=== PATIENT | female | born 2000 | race Caucasian/White ===

== ENCOUNTER 2020-05-25 00:15 | Inpatient (IN) | payer BC ==
[2020-05-25] MEDS: DEXTROSE 5%-LACTATED RINGERS 1,000 ML IV SCH (02:26)
[2020-05-25] MEDS ORDERED: BUTORPHANOL TARTRATE 1 MG/ML VIAL IVPB ONE (08:34)
[2020-05-25] MEDS ORDERED: PROMETHAZINE HCL 25 MG/1 ML VIAL IVPB ONE (08:34)
[2020-05-25 09:20] LABS: BASO % 0.3 % (0-2.0); HEMATOCRIT 26.7 % (32.4-45.2); HEMOGLOBIN 8.5 GM/dL (10.7-15.3); LYMPH % 17.6 % (8-40); MCH 23.8 pg (25.7-33.7); MCHC 31.7 g/dl (32.0-36.0); MEAN CELL VOLUME 75.2 fl (80-96); MEAN PLT VOLUME 9.4 fl (7.5-11.1); MONO % 11.9 % (3.8-10.2); NEUT % 66.2 % (42.8-82.8); PLATELET COUNT 208 K/MM3 (134-434); RBC 3.55 M/mm3 (3.60-5.2); RDW 16.9 % (11.6-15.6)
[2020-05-25 09:29] LABS: PROTHROMBIN TIME (PATIENT) 12.3 SEC (9.7-13.0)
[2020-05-25] MEDS ORDERED: AMPICILLIN - 2 GM in SODIUM CHLORIDE 100 ML IVPB ONE (09:30)
[2020-05-25 09:31] LABS: ACTIVATED PTT 25.9 SECONDS (25.2-36.5)
[2020-05-25] MEDS ORDERED: AMPICILLIN SODIUM 2 GM VIAL ONE (09:32)
[2020-05-25 09:55] LABS: POTASSIUM 3.6 mmol/L (3.5-5.1)
[2020-05-25 09:57] LABS: ALBUMIN 2.4 g/dl (3.4-5.0); CALCIUM 8.5 mg/dL (8.5-10.1)
[2020-05-25 10:00] LABS: CREATININE 0.5 mg/dL (0.55-1.3)
[2020-05-25 10:02] LABS: BILIRUBIN,TOTAL 0.4 mg/dL (0.2-1); TOT PROT 5.8 g/dl (6.4-8.2)
[2020-05-25 10:15] LABS: BLOOD UREA NITROGEN 2.9 mg/dL (7-18)
[2020-05-25 10:23] LABS: SYPHILIS W/ RPR CONF NON-REACTIVE (NONREACTIVE)
[2020-05-25 10:51] LABS: HIV INTERPRETATION NEGATIVE (NEGATIVE)
[2020-05-25 10:56] VITALS: BMI 31.4
[2020-05-25] MEDS ORDERED: OXYTOCIN 30 UNITS in 0.9% NS 30 UNIT/500 ML INFUS.BAG IVPB ONE (12:00)
[2020-05-25] MEDS ORDERED: AMPICILLIN SODIUM 1 GM VIAL ONE ×2 (12:00→16:22)
[2020-05-25] MEDS: OXYTOCIN 30 UNITS in 0.9% NS 30 UNIT/500 ML INFUS.BAG IVPB SCH (12:00)
[2020-05-25] MEDS: AMPICILLIN - 1 GM in SODIUM CHLORIDE 100 ML IVPB SCH ×2 (13:30→17:00)
[2020-05-25] MEDS ORDERED: PROMETHAZINE HCL 25 MG/1 ML VIAL ONE (18:17)
[2020-05-25] MEDS ORDERED: BUTORPHANOL TARTRATE 2 MG/ML VIAL ONE (18:17)
[2020-05-25] MEDS ORDERED: OXYTOCIN 20 UNITS in 0.9% NS 20 UNIT/1,000 ML INFUS.BAG IV ONE ×2 (21:16→23:13)
[2020-05-25] MEDS ORDERED: morphine SULFATE/PF 0.5 MG/ML (2cc Syringe - QUVA) ONE (21:25)
[2020-05-25] MEDS ORDERED: ceFAZolin SODIUM 1 GM VIAL ONE (21:26)
[2020-05-25] MEDS ORDERED: KETOROLAC TROMETHAMINE 30 MG/1 ML VIAL ONE (21:26)
[2020-05-25] MEDS ORDERED: morphine SULFATE/PF 0.5 MG/ML (2cc Syringe - QUVA) EP ONE (21:30)
[2020-05-25] MEDS ORDERED: oxyCODONE HCL 5 MG TABLET PO PRN (22:28)
[2020-05-25] MEDS ORDERED: SENNOSIDES/DOCUSATE COMBO (SENNA PLUS) TABLET (UD) PO PRN (22:28)
[2020-05-25] MEDS ORDERED: METHYLERGONOVINE MALEATE 0.2 MG/1 ML AMP IM PRN (22:28)
[2020-05-25] MEDS ORDERED: ONDANSETRON 4 MG/2 ML VIAL IVPUSH PRN (22:33)
[2020-05-25] MEDS ORDERED: ACETAMINOPHEN 1000 MG/100 ML VIAL (NON FORMULARY) IVPB ONE (22:34)
[2020-05-26] MEDS ORDERED: ACETAMINOPHEN INJECTION 100 ML IVPB ONE (00:40)
[2020-05-26] MEDS ORDERED: OXYTOCIN 20 UNITS in 0.9% NS 20 UNIT/1,000 ML INFUS.BAG IV ONE (08:25)
[2020-05-26] MEDS: OXYTOCIN 20 UNITS in 0.9% NS 20 UNIT/1,000 ML INFUS.BAG IV SCH ×4 (09:00→23:21)
[2020-05-26 09:36] LABS: BASO % 0.5 % (0-2.0); EOS % 1.6 % (0-4.5); HEMATOCRIT 28.4 % (32.4-45.2); HEMOGLOBIN 9.1 GM/dL (10.7-15.3); LYMPH % 12.3 % (8-40); MCH 24.4 pg (25.7-33.7); MEAN CELL VOLUME 76.3 fl (80-96); MEAN PLT VOLUME 9.6 fl (7.5-11.1); MONO % 11.7 % (3.8-10.2); NEUT % 73.9 % (42.8-82.8); PLATELET COUNT 204 K/MM3 (134-434); RBC 3.72 M/mm3 (3.60-5.2); RDW 17.2 % (11.6-15.6); WHITE BLOOD COUNT 10.8 K/mm3 (4.0-10.0)
[2020-05-26] MEDS: IBUPROFEN 800 MG/8 ML IJ IVPB PRN ×2 (13:49→20:47)
[2020-05-26] MEDS: PRENATAL VITAMINS W/ FOLIC ACID TABLET (FP) PO SCH (17:35)
[2020-05-26] MEDS: AMPICILLIN - 1 GM in SODIUM CHLORIDE 100 ML IVPB SCH ×2 (17:36→19:41)
[2020-05-26] MEDS: OXYTOCIN 30 UNITS in 0.9% NS 30 UNIT/500 ML INFUS.BAG IVPB SCH (17:36)
[2020-05-26] MEDS: DEXTROSE 5%-LACTATED RINGERS 1,000 ML IV SCH (19:42)
[2020-05-26] MEDS: SIMETHICONE 80 MG TAB.CHEW (FP) PO PRN (20:48)
[2020-05-26] MEDS ORDERED: BISACODYL 10 MG SUPP.RECT RC PRN (22:28)
[2020-05-27 09:25] LABS: BASO % 0.6 % (0-2.0); EOS % 4.3 % (0-4.5); HEMATOCRIT 30.1 % (32.4-45.2); HEMOGLOBIN 9.4 GM/dL (10.7-15.3); LYMPH % 12.8 % (8-40); MCH 23.8 pg (25.7-33.7); MCHC 31.4 g/dl (32.0-36.0); MEAN CELL VOLUME 75.8 fl (80-96); MEAN PLT VOLUME 8.9 fl (7.5-11.1); MONO % 9.4 % (3.8-10.2); NEUT % 72.9 % (42.8-82.8); PLATELET COUNT 256 K/MM3 (134-434); RBC 3.97 M/mm3 (3.60-5.2); RDW 17.8 % (11.6-15.6); WHITE BLOOD COUNT 10.6 K/mm3 (4.0-10.0)
[2020-05-27] MEDS: PRENATAL VITAMINS W/ FOLIC ACID TABLET (FP) PO SCH (10:02)
[2020-05-27] MEDS: ACETAMINOPHEN 325 MG TABLET (FP) PO PRN ×3 (10:05→22:28)
[2020-05-27] MEDS: SIMETHICONE 80 MG TAB.CHEW (FP) PO PRN ×3 (10:06→22:29)
[2020-05-27] MEDS: IBUPROFEN 600 MG TABLET (FP) PO PRN ×3 (10:06→22:28)
[2020-05-28] MEDS: ACETAMINOPHEN 325 MG TABLET (FP) PO PRN ×2 (04:07→08:37)
[2020-05-28] MEDS: IBUPROFEN 600 MG TABLET (FP) PO PRN ×2 (04:07→08:36)
[2020-05-28] MEDS: oxyCODONE HCL 5 MG TABLET PO PRN ×2 (04:08→08:38)
[2020-05-28] MEDS: SIMETHICONE 80 MG TAB.CHEW (FP) PO PRN ×2 (04:08→08:36)
[2020-05-28] MEDS: PRENATAL VITAMINS W/ FOLIC ACID TABLET (FP) PO SCH (09:25)
[2020-05-28 09:51] VITALS: BP 116/74; PULSE 65; TEMP 97.5
== END 2020-05-28 12:30 | disposition home or self-care (01) | DRG 833 ==
LOC: JDEL 00:15 → JLDR 06:45 → J3W 05-26 13:49
PROVIDERS: ADMIT Obstetrics & Gynecology; ATTEND Obstetrics & Gynecology
PROC: 30233N1 Transfusion of Nonautologous Red Blood Cells into Peripheral Vein, Percutaneous Approach (ICD-10-PCS; principal; 2020-05-25)
PROC: 3E033VJ Introduction of Other Hormone into Peripheral Vein, Percutaneous Approach (ICD-10-PCS; 2020-05-25)
PROC: 10907ZC Drainage of Amniotic Fluid, Therapeutic from Products of Conception, Via Natural or Artificial Opening (ICD-10-PCS; 2020-05-25)
DX: O32.4XX0 Maternal care for high head at term, not applicable or unspecified (principal); O36.63X0 Maternal care for excessive fetal growth, third trimester, not applicable or unspecified; O99.03 Anemia complicating the puerperium; D64.89 Other specified anemias; Z37.0 Single live birth; Z3A.38 38 weeks gestation of pregnancy
CPT/HCPCS: 36415; 36430; 80053; 85025; 85610; 85730; 86762; 86780; 86850; 86900; 86901; 86922; 87340; 87389; 88307-TC; C9803; J0131; P9038; P9058; U0003